=== PATIENT | female | born 1995 | race Caucasian/White ===

== ENCOUNTER 2017-04-08 12:44 | Emergency (ER) | payer OTHER ==
[~2017-04-08] VITALS: Ht 175.3 cm; Wt 66.0 kg
--- OUTSIDE RECORDS SUMMARY | 2017-04-08 12:52 | XMS REPORT | Continuity of Care Document ---
Author Author [facility] Address Unknown Phone Unavailable Allergies Active Description Code Type Severity Reaction Onset Reported/Identified Relationship to Patient Clinical Status Yes No Known Drug Allergies [id number] Drug Allergy Unknown N/ A 01/31/2016 Medications Problems Date Dx Coded Attending Type Code Diagnosis Diagnosed By 01/31/2016 HILARIA MAYBERRY, KRIS P Ot S01.112A 01/31/2016 HILARIA MAYBERRY, KRIS P Ot W22.8XXA 01/31/2016 HILARIA MAYBERRY, KRIS P Ot Y92.69 01/31/2016 HILARIA MAYBERRY, KRIS P Ot Y93.9 01/31/2016 HILARIA MAYBERRY, KRIS P Ot Y99.0 02/05/2016 HILARIA MAYBERRY, KRIS P Ot S01.112A 02/05/2016 HILARIA MAYBERRY, KRIS P Ot W22.8XXA 02/05/2016 HILARIA MAYBERRY, KRIS P Ot Y92.69 02/05/2016 HILARIA MAYBERRY, KRIS P Ot Y93.9 02/05/2016 HILARIA MAYBERRY, KRIS P Ot Y99.0 02/08/2016 HILARIA MAYBERRY, KRIS P Ot S01.112A 02/08/2016 HILARAI MAYBERRY, KRIS P Ot W22.8XXA 02/08/2016 HILARIA MAYBERRY, KRIS P Ot Y92.69 02/08/2016 HILARIA MAYBERRY, KRIS P Ot Y93.9 02/08/2016 HILARIA MAYBERRY, KRIS P Ot Y99.0 02/12/2016 HILARIA MAYBERRY, KRIS P Ot Z48.02 02/13/2016 HILARIA MAYBERRY, KRIS P Ot Z48.02 Procedures Results Encounters ACCT No. Visit Date/Time Discharge Status Pt. Type Provider Facility Loc./Unit Complaint [id number] 01/31/2016 17:05:00 2015 17:55:00 DIS Outpatient HILARIA MAYBERRY, [facility] ED [id number] 02/06/2016 13:21:00 ACT Outpatient HILARIA MAYBERRY, [facility] EU
[2017-04-08 12:53] VITALS: BP 114/71
[2017-04-08] MEDS ORDERED: LIDOCAINE 1% (XYLOCAINE) 20 ML VIAL INJ ONE (13:15)
[2017-04-08] MEDS ORDERED: LIDOCAINE 1% (XYLOCAINE) 20 ML VIAL ONE (13:16)
== END 2017-04-08 14:31 | disposition home or self-care (01) ==
LOC: EDUNIT# 12:44 → ED 12:47
DX: S71.142A Puncture wound with foreign body, left thigh, initial encounter (principal); W45.8XXA Other foreign body or object entering through skin, initial encounter; W29.8XXA Contact with other powered hand tools and household machinery, initial encounter; Y93.89 Activity, other specified; Y92.63 Factory as the place of occurrence of the external cause; Y99.0 Civilian activity done for income or pay
CPT/HCPCS: 10120; 99282; 99283